=== PATIENT | male | born 1960 | race Hispanic/Latino ===

== ENCOUNTER 2018-09-11 17:01 | Observation (INO) | payer BC ==
[2018-09-11] MEDS ORDERED: ONDANSETRON 4 MG/2 ML VIAL ONE (20:43)
[2018-09-11] MEDS ORDERED: MORPHINE 4 MG/ML SYR ONE (20:43)
[2018-09-11] MEDS ORDERED: NA CHLORIDE 0.9% 1,000 ML ONE (20:43)
[2018-09-11 21:06] LABS: ALT/SGPT 36 U/L (12-78); AST/SGOT 28 U/L (15-37); Albumin 3.9 g/dL (3.4-5.0); Alkaline Phosphatase 75 U/L (45-117); BUN Blood Urea Nitrogen 22 mg/dL (7-18); Bicarbonate 28 mmol/L (21-32); Bilirubin Direct < 0.1 mg/dL (0-0.2); Bilirubin Total 0.4 mg/dL (0.2-1.0); Glucose Level 95 mg/dL (74-106); Lipase 74 U/L (73-393); Potassium 4.3 mmol/L (3.5-5.1); Protein, Total 7.5 g/dL (6.4-8.2); Sodium Level 140 mmol/L (136-145)
[2018-09-11 21:12] LABS: Absolute Lymphocytes (CBC) 1.5 K/uL (0.7-4.9); Absolute Monocytes 0.8 K/uL (0.1-1.3); Absolute Neutrophil 6.8 K/uL (1.8-8.0); Basophils % 0.3 % (0-1.3); Eosinophils % 0.9 % (0-4.4); Hematocrit 46.3 % (39.6-49.0); Lymphocytes % 16.6 % (15.3-44.8); Monocytes % 8.3 % (3.3-12.3); RBC Red Blood Cell Count 4.99 M/uL (4.33-5.43)
[2018-09-11] MEDS ORDERED: FENTANYL CITR 100 MCG/2 ML ONE (21:36)
--- NOTE | 2018-09-11 22:49 | EDPHYS ---
Physician Documentation [facility] Name: Gerard Rueda Age: 58 yrs Sex: Male : 1960 Arrival Date: 09/11/2018 Time: 17:04 Bed 28 Private MD: ED Physician Shane Durbin HPI: 09/11 21:21 This 58 yrs old Male presents to ER via Ambulatory with complaints of Other, kb hernia. 21:25 The patient presents with abdominal pain in the periumbilical area. Onset: The kb symptoms/episode began/occurred today. The symptoms do not radiate. Associated signs and symptoms: Pertinent positives: hernia. The symptoms are described as constant. Modifying factors: The symptoms are alleviated by nothing, the symptoms are aggravated by pressure. Severity of pain: At its worst the pain was moderate in the emergency department the pain is unchanged. The patient has not experienced similar symptoms in the past. The patient has not recently seen a physician. Pt reports he was lifting something at work and felt a pop. Now has umbilical hernia. Historical: - Allergies: 17:07 No Known Allergies; ss - Home Meds: 17:07 None [Active]; ss - PMHx: 17:07 None; ss - PSHx: 17:07 None; ss - Immunization history:: Adult Immunizations up to date. - Social history:: Smoking status: Patient/guardian denies using tobacco. - Ebola Screening: : Patient denies exposure to infectious person Patient denies travel to an Ebola-affected area in the 21 days before illness onset. ROS: 21:22 Constitutional: Negative for fever, chills, and weight loss, Neck: Negative for injury, kb pain, and swelling, Cardiovascular: Negative for chest pain, palpitations, and edema, Respiratory: Negative for shortness of breath, cough, wheezing, and pleuritic chest pain, Back: Negative for injury and pain, MS/Extremity: Negative for injury and deformity, Skin: Negative for injury, rash, and discoloration, Neuro: Negative for headache, weakness, numbness, tingling, and seizure. 21:22 Abdomen/GI: Positive for abdominal pain. Exam: 21:22 Constitutional: This is a well developed, well nourished patient who is awake, alert, kb and in no acute distress. Head/Face: Normocephalic, atraumatic. Neck: Trachea midline, no thyromegaly or masses palpated, and no cervical lymphadenopathy. Supple, full range of motion without nuchal rigidity, or vertebral point tenderness. No Meningismus. Chest/axilla: Normal chest wall appearance and motion. Nontender with no deformity. No lesions are appreciated. Cardiovascular: Regular rate and rhythm with a normal S1 and S2. No gallops, murmurs, or rubs. Normal PMI, no JVD. No pulse deficits. Respiratory: Lungs have equal breath sounds bilaterally, clear to auscultation and percussion. No rales, rhonchi or wheezes noted. No increased work of breathing, no retractions or nasal flaring. Back: No spinal tenderness. No costovertebral tenderness. Full range of motion. Skin: Warm, dry with normal turgor. Normal color with no rashes, no lesions, and no evidence of cellulitis. MS/ Extremity: Pulses equal, no cyanosis. Neurovascular intact. Full, normal range of motion. Neuro: Awake and alert, GCS 15, oriented to person, place, time, and situation. Cranial nerves II-XII grossly intact. Motor strength 5/5 in all extremities. Sensory grossly intact. Cerebellar exam normal. Normal gait. 21:22 Abdomen/GI: Inspection: obese Bowel sounds: normal, Palpation: abdomen is soft and non-tender, in all quadrants, Hernia: noted in the umbilical area, incarceration, that is mild, hernia developed while lifting something at work around 1600. 21:24 Abdomen/GI: Hernia: noted in the paraumbilical area, easily reduced, pt reports this kb hernia has been there for years and does not cause pain. Vital Signs: 17:07 BP 165 / 76; Pulse 86; Resp 16; Temp 98.6(TE); Pulse Ox 100% on R/A; Weight 99.79 kg; ss Height 5 ft. 10 in. (177.80 cm); Pain 6/10; 20:07 BP 143 / 78; Pulse 78; Pulse Ox 100% ; Pain 8/10; ea 21:05 BP 158 / 86; Pulse 80; Resp 19; Pulse Ox 97% on R/A; ca1 22:01 BP 158 / 86; Pulse 85; Resp 19; Pulse Ox 95% on R/A; ca1 23:30 BP 155 / 52; Pulse 86; Resp 19; Pulse Ox 100% on R/A; ca1 17:07 Body Mass Index 31.57 (99.79 kg, 177.80 cm) ss MDM: 20:09 Patient medically screened. kb 21:19 Data reviewed: vital signs, nurses notes. ED course: Unable to reduce hernia myself, kb tried before and after pain medication administered. Dr Durbin was able to reduce hernia.. 22:47 Data interpreted: Pulse oximetry: on room air is 95 %. Interpretation: normal. kb Counseling: I had a detailed discussion with the patient and/or guardian regarding: the historical points, exam findings, and any diagnostic results supporting the discharge/admit diagnosis, lab results, radiology results, the need for further work-up and treatment in the hospital. Physician consultation: Juan Colorado MD was contacted at 22:47, regarding admission, to the medical/surgical unit. patient's condition, and will see patient in inpatient room. 09/11 20:09 Order name: Basic Metabolic Panel; Complete Time: 21:11 kb 09/11 20:09 Order name: CBC with Diff; Complete Time: 21:55 kb 09/11 20:09 Order name: Hepatic Function; Complete Time: 21:11 kb 09/11 20:09 Order name: Lipase; Complete Time: 21:11 kb 09/11 20:18 Order name: CT Abd/Pelvis - W/Contrast 09/11 20:09 Order name: IV Saline Lock; Complete Time: 20:26 kb 09/11 20:09 Order name: Labs collected and sent; Complete Time: 20:27 kb Administered Medications: 20:27 Drug: NS 0.9% 1000 ml Route: IV; Rate: 1000 ml; Site: left hand; ca1 23:23 Follow up: Response: No adverse reaction; IV Status: Completed infusion ca1 20:28 Drug: Zofran 4 mg Route: IVP; Site: left hand; ca1 23:23 Follow up: Response: No adverse reaction; Nausea is decreased ca1 20:30 Drug: morphine 4 mg Route: IVP; Site: left hand; ca1 23:22 Follow up: Response: No adverse reaction; Pain is decreased ca1 21:15 Drug: fentaNYL (PF) 75 mcg Route: IVP; Site: left hand; ca1 23:22 Follow up: Response: Pain is decreased ca1 23:11 Drug: Unasyn 3 grams Route: IVPB; Infused Over: 30 mins; Site: left hand; ca1 23:51 Follow up: Response: No adverse reaction; IV Status: Completed infusion ca1 Disposition: 09/12 10:20 Co-signature as Attending Physician, Shane Durbin MD I agree with the assessment and wa plan of care. Disposition: 09/11/18 22:48 Hospitalization ordered by Juan Colorado for Observation. Preliminary diagnosis is Umbilical hernia. - Bed requested for Telemetry/MedSurg (observation). - Status is Observation. ca1 - Condition is Stable. - Problem is new. - Symptoms have improved. UTI on Admission? No Signatures: Dispatcher [employer] EDMS Eveline Rosado, MINE-C MINE-Nikia Granados RN RN dw Evelyn Salazar RN RN Shane Durbin MD MD la Kathy Shaver RN RN ca1 Corrections: (The following items were deleted from the chart) 09/11 21:25 21:22 Abdomen/GI: Inspection: obese Bowel sounds: normal, Palpation: abdomen is soft kb and non-tender, in all quadrants, Hernia: noted in the umbilical area, incarceration, that is mild, kb 22:47 21:19 Data interpreted: Pulse oximetry: on room air is 100 %. Interpretation: normal. kb 23:14 22:48 Hospitalization Ordered by Juan Colorado MD for Observation. Preliminary dw diagnosis is Umbilical hernia. Bed requested for Telemetry/MedSurg (observation). Status is Observation. Condition is Stable. Problem is new. Symptoms have improved. UTI on Admission? No. kb 09/12 00:08 09/11 23:14 09/11/2018 22:48 Hospitalization Ordered by Juan Colorado MD for ca1 Observation. Preliminary diagnosis is Umbilical hernia. Bed requested for Telemetry/MedSurg (observation). Status is Observation. Condition is Stable. Problem is new. Symptoms have improved. UTI on Admission? No. dw
--- NOTE | 2018-09-11 22:49 | ER ---
Nurse's Notes [facility] Name: Gerard Rueda Age: 58 yrs Sex: Male : 1960 Arrival Date: 09/11/2018 Time: 17:04 Bed 28 Private MD: Diagnosis: Umbilical hernia Presentation: 09/11 17:04 Presenting complaint: EMS states: Was lifting a heavy object at work approximately 1 ss hour ago and felt a pop. Umbilical hernia noted in triage. Pt reports that this hernia has never protruded before today. Transition of care: patient was not received from another setting of care. Onset of symptoms was September 11, 2018. Risk Assessment: Do you want to hurt yourself or someone else? Patient reports no desire to harm self or others. Initial Sepsis Screen: Does the patient meet any 2 criteria? No. Patient's initial sepsis screen is negative. Does the patient have a suspected source of infection? No. Patient's initial sepsis screen is negative. Care prior to arrival: IV initiated. 20 GA, in the left wrist. 17:04 Method Of Arrival: Ambulatory ss 17:04 Acuity: DANA 3 ss Historical: - Allergies: 17:07 No Known Allergies; ss - Home Meds: 17:07 None [Active]; ss - PMHx: 17:07 None; ss - PSHx: 17:07 None; ss - Immunization history:: Adult Immunizations up to date. - Social history:: Smoking status: Patient/guardian denies using tobacco. - Ebola Screening: : Patient denies exposure to infectious person Patient denies travel to an Ebola-affected area in the 21 days before illness onset. Screenin:10 Abuse screen: Denies threats or abuse. Denies injuries from another. Nutritional ca1 screening: No deficits noted. Tuberculosis screening: No symptoms or risk factors identified. 20:10 Fall Risk IV access (20 points). ca1 Assessment: 20:10 General: Appears in no apparent distress. comfortable, Behavior is calm, cooperative, ca1 appropriate for age. Pain: Complains of pain in paraumbilical area and umbilical area Pain does not radiate. Pain currently is 10 out of 10 on a pain scale. Pain began 4 hours ago. Aggravated by weight bearing. Neuro: Level of Consciousness is awake, alert, obeys commands, Oriented to person, place, time, situation. Cardiovascular: Heart tones S1 S2 present Capillary refill < 3 seconds Patient's skin is warm and dry. Respiratory: Airway is patent Respiratory effort is even, unlabored, Respiratory pattern is regular, symmetrical, Breath sounds are clear bilaterally. GI: Abdomen is round non-distended, Bowel sounds present X 4 quads. Abdomen is tender to palpation in paraumbilical area and umbilical area Patient currently denies constipation, diarrhea, nausea, vomiting. GI: : No deficits noted. No signs and/or symptoms were reported regarding the genitourinary system. EENT: No deficits noted. No signs and/or symptoms were reported regarding the EENT system. Derm: Skin is intact, is healthy with good turgor, Skin is pink, warm \T\ dry. Musculoskeletal: Circulation, motion, and sensation intact. Capillary refill < 3 seconds. 21:00 Reassessment: Patient appears in no apparent distress at this time. Patient and/or ca1 family updated on plan of care and expected duration. Pain level reassessed. Patient is alert, oriented x 3, equal unlabored respirations, skin warm/dry/pink. Dr. Durbin at bedside to assess abdominal hernia. 22:01 Reassessment: Patient appears in no apparent distress at this time. Patient and/or ca1 family updated on plan of care and expected duration. Pain level reassessed. Patient is alert, oriented x 3, equal unlabored respirations, skin warm/dry/pink. 23:30 Reassessment: Patient appears in no apparent distress at this time. Patient and/or ca1 family updated on plan of care and expected duration. Pain level reassessed. Patient is alert, oriented x 3, equal unlabored respirations, skin warm/dry/pink. Awaiting room assignment. Vital Signs: 17:07 BP 165 / 76; Pulse 86; Resp 16; Temp 98.6(TE); Pulse Ox 100% on R/A; Weight 99.79 kg; ss Height 5 ft. 10 in. (177.80 cm); Pain 6/10; 20:07 BP 143 / 78; Pulse 78; Pulse Ox 100% ; Pain 8/10; ea 21:05 BP 158 / 86; Pulse 80; Resp 19; Pulse Ox 97% on R/A; ca1 22:01 BP 158 / 86; Pulse 85; Resp 19; Pulse Ox 95% on R/A; ca1 23:30 BP 155 / 52; Pulse 86; Resp 19; Pulse Ox 100% on R/A; ca1 17:07 Body Mass Index 31.57 (99.79 kg, 177.80 cm) ED Course: 17:04 Patient arrived in ED. ss 17:06 Triage completed. ss 20:05 Arm band placed on. ca1 20:09 [facility]ado [facility]C [facility] kb 20:09 Shane Durbin MD is Attending Physician. kb 20:10 Patient has correct armband on for positive identification. Placed in gown. Bed in low ca1 position. Call light in reach. Side rails up X 1. Pulse ox on. NIBP on. Warm blanket given. 20:12 Kathy Shaver RN is Primary Nurse. ca1 20:22 Oral contrast given. vm2 20:25 Maintain EMS IV. Dressing intact. Good blood return noted. Site clean \T\ dry. Gauge \T\ ca 1 site: G20 Left hand. 20:30 Oral contrast reported to be complete. vm2 21:[address] via wheelchair. vm2 22:04 CT completed. Patient tolerated procedure well. Patient moved back from CT. vm2 22:14 CT Abd/Pelvis - W/Contrast In Process Unspecified. EDMS 22:48 Juan Colorado MD is Hospitalizing Provider. kb 23:51 No provider procedures requiring assistance completed. Patient admitted, IV remains in ca1 place. Administered Medications: 20:27 Drug: NS 0.9% 1000 ml Route: IV; Rate: 1000 ml; Site: left hand; ca1 23:23 Follow up: Response: No adverse reaction; IV Status: Completed infusion ca1 20:28 Drug: Zofran 4 mg Route: IVP; Site: left hand; ca1 23:23 Follow up: Response: No adverse reaction; Nausea is decreased ca1 20:30 Drug: morphine 4 mg Route: IVP; Site: left hand; ca1 23:22 Follow up: Response: No adverse reaction; Pain is decreased ca1 21:15 Drug: fentaNYL (PF) 75 mcg Route: IVP; Site: left hand; ca1 23:22 Follow up: Response: Pain is decreased ca1 23:11 Drug: Unasyn 3 grams Route: IVPB; Infused Over: 30 mins; Site: left hand; ca1 23:51 Follow up: Response: No adverse reaction; IV Status: Completed infusion ca1 Outcome: 22:48 Decision to Hospitalize by Provider. kb 23:53 Admitted to Tele accompanied by tech, via wheelchair, room 430, with chart, Report ca1 called to Nikia Corral RN 23:53 Condition: stable 23:53 Instructed on the need for admit. 09/12 00:08 Patient left the ED. ca1 Signatures: Dispatcher [employer] EDMS Eveline Rosado, ROLL PLUGGER MACHINE OPERATOR-C ROLL PLUGGER MACHINE OPERATOR-Evelyn Suresh RN RN Shea Harris [facility] Makeda Cabral RN RN ea Acob, Cheryl, RN RN ca1 Corrections: (The following items were deleted from the chart) 09/11 21:39 20:10 Fall Risk None identified. ca1 ca1
[2018-09-11] MEDS ORDERED: NA CHLORIDE 0.9% 100 ML IV ONE (23:18)
[2018-09-11] MEDS ORDERED: AMPICILLIN/SULBACTAM 3GM/VIAL ONE (23:18)
[2018-09-12] MEDS ORDERED: ONDANSETRON 4 MG/2 ML VIAL IV PRN (00:29)
[2018-09-12] MEDS ORDERED: MORPHINE 4 MG/ML SYR IV PRN (00:29)
[2018-09-12] MEDS ORDERED: ACETAMINOPHEN 500 MG TAB PO PRN (00:29)
[2018-09-12] MEDS: NA CHLORIDE 0.9% 1,000 ML IV SCH ×4 (01:23→21:55)
[2018-09-12] MEDS ORDERED: AMPICILLIN/SULBACT 3 GM in NA CHLORIDE 0.9% 100 ML IVPB SCH ×2 (05:00→12:00)
[2018-09-12 05:22] VITALS: BMI 31.5
[2018-09-12 05:22] LABS: Absolute Lymphocytes (CBC) 1.3 K/uL (0.7-4.9); Absolute Monocytes 0.8 K/uL (0.1-1.3); Absolute Neutrophil 4.2 K/uL (1.8-8.0); Basophils % 0.5 % (0-1.3); Eosinophils % 2.1 % (0-4.4); Hematocrit 41.5 % (39.6-49.0); Lymphocytes % 19.8 % (15.3-44.8); MPV 9.7 fL (7.6-11.3); Monocytes % 11.9 % (3.3-12.3)
[2018-09-12 05:39] LABS: Albumin 3.2 g/dL (3.4-5.0); Bilirubin Direct 0.2 mg/dL (0-0.2); Bilirubin Total 0.6 mg/dL (0.2-1.0); Potassium 4.2 mmol/L (3.5-5.1); Protein, Total 6.3 g/dL (6.4-8.2)
[2018-09-12] MEDS ORDERED: AMPICILLIN/SULBACTAM 3GM/VIAL ONE (06:17)
--- NOTE | 2018-09-12 11:56 | RAD REPORT ---
EXAM DESCRIPTION: CT - Abdomen Pelvis W Contrast - 09/11/2018 10:14 pm CLINICAL HISTORY: The patient is 58 years old and is Male; evaluate umbilical hernia; Abd pain TECHNIQUE: Axial computed tomography images of the abdomen and pelvis with intravenous contrast. S agittal and coronal reformatted images were created and reviewed. This CT exam was performed using one or more of the following dose reduction techniques: automated exposure control, adjustment of t he mA and/or kV according to patient size, and/or use of iterative reconstruction technique. COMPARISON: No relevant prior studies available. FINDINGS: Lung bases: Minimal dependent densities in the lung bases are present. ABDOMEN: Liver: The liver is mildly fatty. Gallbladder and bile ducts: No calcified stones. No ductal dilation. Pancreas: No ductal dilation. No mass. Spleen: Unremarkable. Adrenals: Unremarkable. No mass. Kidneys and ureters: Unremarkable. No solid mass. No hydronephrosis. Stomach and bowel: The stomach is minimally distended with oral contrast. Oral contrast is noted throughout the majority of the small bowel which is normal in caliber. Stool is present throughout t he colon. Scattered colonic diverticula are noted without surrounding inflammation. There is no bowel obstruction. PELVIS: Appendix: The appendix is normal in caliber without surrounding inflammation. Bladder: Unremarkable. No mass. Reproductive: Unremarkable as visualized. ABDOMEN and PELVIS: Intraperitoneal space: Unremarkable. No free air. No significant fluid collection. Bones/joints: Unilateral pars defect on the left at L5 is present. Soft tissues: There are small bilateral fat containing inguinal hernias. A small fat-containing umbilical hernia is present. The mouth of the hernia measures approxi mately 1.4 cm. The fat within the hernia sac is inflamed as is the fat just proximal to the hernia sa c. A small fat-containing epigastric hernia is present. Vasculature: Unremarkable. No abdominal aortic aneurysm. Lymph nodes: Unremarkable. No enlarged lymph nodes. IMPRESSION: Narrow mouthed fat containing umbilical hernia. The fat within the hernia sac and just p roximal to the hernia sac is inflamed. Electronically signed by: Deb Zuleta MD 09/11/2018 10:22 PM CDT Due to temporary technical issues with the PACS/Fluency reporting system, reports are being signed by the in house radiologist as a courtesy to ensure prompt reporting. The interpreting radiologist is f álvaroly responsible for the content of the report.
--- NOTE | 2018-09-12 13:22 | P.HP ---
Date of Service: 09/12/18 PC: This patient presented to the emergency room with a bulge in his umbilicus and pain. HPC: Patient apparently had been worked seen lifting a pipe. He went to [facility] again. Apparently he had noticed extreme pain and a bulge in his umbilicus. The bulge would not go back inside. He came to the emergency room where this umbilical hernia was reduced for him.. PMH: Negative PSHx: Denies a prior surgeries SOC: No known allergies SYS REVIEW: No cough, wheeze, shortness of breath. No chest pain or palpitations. Denies any urinary complaints O/E awake alert comfortable at the moment HEENT: Within normal limits Chest: Clear ABD: Umbilical hernia, reduced at the moment LOCO: Intact DATA: CT scan demonstrates reduced hernia with a small amount of fat still in position IMPRESSION: Umbilical hernia PLAN: I will take him to the operating room for laparoscopic repair of this umbilical hernia with mesh. The risks of this procedure have been discussed. The possibility of bleeding, infection, injury to bowel blood vessels and surrounding structures were explained. The possibility of recurrence was outlined. Mesh complications and need for removal were also described. He and his understand and want to proceed.
[2018-09-12] MEDS ORDERED: PROPOFOL 200 MG/20 ML VIAL IV ONE (13:56)
[2018-09-12] MEDS ORDERED: FENTANYL CITR 100 MCG/2 ML ONE ×2 (13:57→14:20)
[2018-09-12] MEDS ORDERED: MIDAZOLAM HCL 2 MG/2 ML INJ ONE (13:58)
[2018-09-12] MEDS ORDERED: LIDOCAINE 2% MPF 5 ML VIAL ONE (13:59)
[2018-09-12] MEDS ORDERED: ROCURONIUM 50 MG/5 ML VIAL IV ONE (14:01)
[2018-09-12] MEDS ORDERED: ONDANSETRON 4 MG/2 ML VIAL ONE (14:01)
[2018-09-12] MEDS: BUPIVACAINE 0.5% PF 10 ML VIAL ONE ×2 (14:07→15:15)
[2018-09-12] MEDS ORDERED: GLYCOPYRROLATE 0.2 MG/ML SYR ONE (15:05)
[2018-09-12] MEDS ORDERED: EPHEDRINE SULF 50 MG/10 ML SYR ONE (15:06)
[2018-09-12] MEDS ORDERED: NEOSTIGMINE 1 MG/ML -10 ML VIAL ONE (15:08)
[2018-09-12] MEDS ORDERED: Ringers Lactate 1,000 ML IV ONE (15:09)
--- NOTE | 2018-09-12 15:25 | P.OP ---
Preoperative diagnosis: Umbilical hernia Postoperative diagnosis: Small umbilical hernia with incarcerated ventral hernia Primary procedure: Laparoscopic reduction and repair of incarcerated ventral hernia Anesthesia: General Estimated blood loss: Less than 10 cc Specimen: And then Operative Technique: The patient brought the operating room placed supine on the table. After the induction of adequate general endotracheal anesthesia, the area then was prepped with a DuraPrep solution, use draped in usual aseptic manner. A left upper quadrant skin incision was made. This brought down through the skin and subcutaneous tissue. The muscle layers were divided using the Visiport. We encounter the peritoneum which was carefully opened to allow access to the peritoneal cavity. The abdomen was now inflated to a pressure approximately 12 mm of mercury. Under direct vision a 5 mm trocar was placed in left lower quadrant. We were now able to visualize the anterior abdominal wall. We could see the umbilicus itself. There was inflammatory omentum adherent to the posterior portion of the umbilicus. These adhesions were gently taken down. The hernia itself is less than 3 mm at this point. However just above this we found incarcerated ventral hernia with ligaments and again omentum that had gone through was incarcerated in this. Applying traction and external gentle pressure were able to bring it back into the peritoneal cavity. Part of the ligament was taken down using electro cautery to allow us to fully access is ventral hernia. The defect itself was approximately 2 cm in size. It is in the midline. A piece of 12 cm circular mesh was now introduced into the peritoneal cavity. It was brought up to the abdominal wall. The stay stitches that had been placed on the pulse of the mesh were used health position. The mesh was now stapled in place. Maneuvering the mesh were able to get better coverage of our hernial defect ensuring adequate coverage well around. The mesh was then fixed using a Pro Tacker. At this point the abdomen is inspected to ensure adequate hemostasis. The left upper quadrant incision was closed using the Endo Close and an absorbable suture. The trocars were now removed. The pneumoperitoneum was collapsed. The suture was tied. Mary were applied to the skin At the end of procedure he was stable when sent to the recovery room. Needle sponge instrument count were correct. No drains were placed. Complications: None Transferred to: Recovery Room Condition: Good
[2018-09-12] MEDS: HYDROMORPHONE HCL 2 MG/ML inj ONE ×4 (15:35→15:50)
[2018-09-12] MEDS: MORPHINE 4 MG/ML SYR ONE ×2 (15:55→16:00)
[2018-09-12] MEDS ORDERED: MEPERIDINE HCL 25 MG/0.5 ML IV ONE ×5 (16:04→16:23)
[2018-09-12] MEDS ORDERED: MEPERIDINE HCL 25 MG/0.5 ML ONE (16:14)
[2018-09-12] MEDS ORDERED: MEPERIDINE HCL 50 MG/ML AMP ONE (16:29)
[2018-09-12] MEDS ORDERED: HYDROCODONE/APAP 7.5/325 MG TAB PO PRN (18:51)
[2018-09-12] MEDS: MORPHINE 4 MG/ML SYR IV PRN ×2 (19:15→21:55)
[2018-09-12] MEDS: HYDROCODONE/APAP 7.5/325 MG TAB PO PRN (20:51)
[2018-09-13] MEDS: NA CHLORIDE 0.9% 1,000 ML IV SCH ×4 (00:24→17:33)
[2018-09-13] MEDS: MORPHINE 4 MG/ML SYR IV PRN ×2 (03:17→09:26)
[2018-09-13] MEDS: HYDROCODONE/APAP 7.5/325 MG TAB PO PRN ×3 (05:41→23:48)
[2018-09-13 06:46] LABS: Urine Appearance CLEAR; Urine Bilirubin NEGATIVE (NEG); Urine Blood NEGATIVE (NEG); Urine Color YELLOW; Urine Glucose NEGATIVE (NEG); Urine Microscopic Reflex NO UMIC; Urine Protein NEGATIVE (NEG); Urine Urobilinogen 0.2 mg/dL (0.2-1.0)
--- NOTE | 2018-09-13 15:32 | P.PN ---
Date of Service: 09/13/18 S: Patient feels somewhat better today, up ambulating. Still has a lot of abdominal pain get in and a bed. No bowel movements. Not passing any gas. Rather on comfortable at the moment. O: Vital signs are stable, and abdominal wall is very tender in the upper abdomen where he had his incarcerated hernia. Also sore and somewhat bruised around that area. Incisions are clean, no evidence of infection. Chest movement equal bilaterally. Up walking at the moment. A: Surgically stable status post laparoscopic repair of ventral wall hernia. P: I was anticipating on being able to discharge the patient today. He however is extremely on comfortable, not having bowel movements, and has a quiet abdomen on examination. May be developing a postop ileus. I will keep in 1 more day and hopefully discharge him tomorrow. We will see if we can get his pain medications better adjusted. I have discussed this with the patient and his , and they are agreeable to this plan.
[2018-09-13] MEDS ORDERED: MAGNESIUM CITRATE 300 ML BOT PO SCH (16:00)
[2018-09-14] MEDS: NA CHLORIDE 0.9% 1,000 ML IV SCH ×4 (00:29→13:08)
[2018-09-14 03:10] VITALS: O2SAT 95
[2018-09-14] MEDS: HYDROCODONE/APAP 7.5/325 MG TAB PO PRN ×2 (08:43→15:16)
[2018-09-14 16:47] VITALS: BP 132/61; TEMP 98.8
== END 2018-09-14 17:27 | disposition home or self-care (01) ==
LOC: ER 17:01 → ERHOLD 22:59 → 4TH 23:43
PROVIDERS: ADMIT Surgery; ATTEND Surgery
PROC: 0WUF4JZ Supplement Abdominal Wall with Synthetic Substitute, Percutaneous Endoscopic Approach (ICD-10-PCS; principal; 2018-09-12 13:45)
DX: K42.9 Umbilical hernia without obstruction or gangrene (principal); K43.6 Other and unspecified ventral hernia with obstruction, without gangrene
CPT/HCPCS: 36415; 74177; 80048; 80076; 81003; 83690; 85025; 96361; 96365; 96375; 99285; G0378; J0295; J1170; J2175; J2250; J2405; J2704; J2710; J3010; J7030; Q9967